=== PATIENT | female | born 1975 | race African-American/Black ===

== ENCOUNTER 2019-10-29 08:35 | Emergency (ER) | payer OTHER ==
[~2019-10-29] VITALS: Ht 162.6 cm; Wt 102.1 kg
[~2019-10-29 08:35] MED LIST: BENZTROPINE MES1 MG; CELEXA40 MG; EFFEXOR; HYDROCHLOROTHIA25 M2 PO; LITHATE20 MG
[2019-10-29 09:53] LABS: ABSOLUTE NEUTROPHILS 6.5 thou/uL (1.4-8.2); BASOPHILS 0.6 % (0.0-2.0); EOSINOPHILS 0.3 % (0.0-3.0); HEMATOCRIT 37.3 % (37.0-47.0); HEMOGLOBIN 12.1 gm/dL (12.0-15.0); LYMPHOCYTES 15.4 % (24.0-44.0); MCH 25.9 pg (26.0-34.0); MCHC 32.4 g/dL (28.0-37.0); MONOCYTES 6.5 % (1.0-8.0); PLATELET COUNT 309 thou/uL (150-400); POLYS 77.2 % (36.0-66.0); RBC 4.66 mil/uL (4.20-5.00); RDW 14.5 % (10.5-14.5); WBC 8.4 thou/uL (4.0-11.0)
[2019-10-29 10:11] LABS: ANION GAP 8 mmol/L (7-16); BUN 13 mg/dL (7-18); CALCIUM 9.5 mg/dL (8.5-10.1); CHLORIDE 107 mmol/L (98-107); CO2 27 mmol/L (21-32); CREATININE 0.8 mg/dL (0.6-1.0); GLUCOSE 105 mg/dL (74-106); POTASSIUM 3.3 mmol/L (3.5-5.1); SODIUM 142 mmol/L (136-145)
[2019-10-29 10:21] LABS: TROPONIN-I <0.06 ng/mL (<0.06)
[2019-10-29 12:45] VITALS: BP 189/102
--- NOTE | 2019-10-30 17:25 | EKG ---
[place] [address] [facility] [employer] [address] ELECTROCARDIOGRAM REPORT Name: TREVOR WILEY [facility] [id number] Admission: 10/29/19 Attend Phys: Discharge: 10/29/19 Date of : 73 Report #: [id number] THIS REPORT FOR: //name// [facility] ED Test Date: 2019-10-29 Test Time: 08:48:25 Pat Name: TREVOR WILEY Department: Room: Gender: F [employer]: nathanael : 1975 Requested By: Joao Tovar Order Number: [id number] MD: Ariel Mckenzie Measurements Intervals [place] Rate: 79 P: 17 OK: 220 QRS: -18 QRSD: 102 T: 4 QT: 373 QTc: 428 Interpretive Statements Sinus rhythm Prolonged OK interval Borderline left axis deviation No previous ECG available for comparison Electronically Signed On 10-30-2019 17:25:11 IT PROJECT COORDINATOR by Ariel Mckenzie [email or web address] <ELECTRONICALLY SIGNED> By: Ariel Mckenzie MD, [facility] 10/30/19 1725 0848 [id number] Ariel Mckenzie MD, FACC /EPI
== END 2019-10-29 13:01 | disposition home or self-care (01) ==
LOC: ER 08:35
PROVIDERS: Emergency Medicine
DX: R06.00 Dyspnea, unspecified (principal); R91.8 Other nonspecific abnormal finding of lung field; F17.210 Nicotine dependence, cigarettes, uncomplicated; I10 Essential (primary) hypertension; F31.9 Bipolar disorder, unspecified; F41.9 Anxiety disorder, unspecified; Z79.899 Other long term (current) drug therapy; Z85.3 Personal history of malignant neoplasm of breast